=== PATIENT | female | born 1995 | race Two or more races ===

== ENCOUNTER 2018-01-02 12:16 | Emergency (ER) | payer BC ==
[2018-01-02 12:28] VITALS: BP 127/74; PULSE 97; TEMP 99.2; BMI 27.8
--- NOTE | 2018-01-02 12:51 | PDOC ---
Attending Attestation - Resident Resident Name: John Gamble - HPI HPI: 01/02/18 14:19 Pt presents to the ED complaining of R sided flank and abdominal pain, dysuria and fever. Denies vomiting or changes in bowel habits. 01/02/18 14:38 - Physicial Exam PE: 01/02/18 14:41 Agree with resident exam. Patient is alert and oriented and in no acute distress. Abdomen has mild tenderness without guarding or rebound in the RLQ. + R sided CVA tenderness. - Medical Decision Making 01/02/18 14:47 Pt presents to the ED complaining of RLQ and R flank pain and tenderness. Differential includes pyelonephritis, less likely appendicitis, less likely ectopic , PID. will check CT abdomen pelvis to rule out appendicitis, give pain control and reassess. 01/02/18 15:56 Discharge Disposition - Diagnosis Pyelonephritis - Discharge Dispostion Disposition: HOME Condition at time of disposition: Good Decision to Admit order: No - Prescriptions Prescriptions: Levofloxacin [Levaquin] 500 mg PO DAILY #10 tablet - Referrals - Patient Instructions Printed Discharge Instructions: DI for Kidney Infection Additional Instructions: return to the ED for severe pain, severe nausea and vomiting, pain and fever that persist after two days of antibiotic. It is very important that you take the antibiotics. If you do not, you may become very sick. Make sure that you continue taking the antibiotic until it is all gone. Make sure that you follow up with your primary care doctor within two days. - Post Discharge Activity
[2018-01-02] MEDS ORDERED: ACETAMINOPHEN 1000 MG/100 ML VIAL (NON FORMULARY) IVPB ONE (13:23)
[2018-01-02 13:25] LABS: BASO % 0.4 % (0-2.0); HEMATOCRIT 42.6 % (32.4-45.2); HEMOGLOBIN 14.1 GM/dL (10.7-15.3); LYMPH % 9.7 % (8-40); MCH 27.3 pg (25.7-33.7); MCHC 33.1 g/dl (32.0-36.0); MEAN CELL VOLUME 82.5 fl (80-96); MONO % 11.7 % (3.8-10.2); NEUT % 78.2 % (42.8-82.8); PLATELET COUNT 192 K/MM3 (134-434); RBC 5.17 M/mm3 (3.60-5.2); RDW 14.5 % (11.6-15.6); WHITE BLOOD COUNT 11.2 K/mm3 (4.0-10.0)
[2018-01-02] MEDS ORDERED: ACETAMINOPHEN INJECTION 100 ML IVPB ONE (13:29)
[2018-01-02 13:47] LABS: URINE APPEARANCE CLEAR; URINE BILIRUBIN NEGATIVE (<2.0 mg/dL); URINE COLOR YELLOW; URINE GLUCOSE (UA) NEGATIVE (NEGATIVE); URINE KETONE NEGATIVE (NEGATIVE); URINE NITRITE NEGATIVE (NEGATIVE); URINE PROTEIN NEGATIVE (NEGATIVE); URINE UROBILINOGEN NEGATIVE mg/dL (0.2-1.0)
[2018-01-02 13:50] LABS: URINE LEUK ESTERASE 1+ (NEGATIVE)
[2018-01-02 13:54] LABS: ALBUMIN 3.8 g/dl (3.4-5.0); ANION GAP 8 MMOL/L (8-16); BILIRUBIN,TOTAL 0.8 mg/dL (0.2-1.0); BLOOD UREA NITROGEN 5 mg/dL (7-18); CALCIUM 8.4 mg/dL (8.5-10.1); CHLORIDE 105 mmol/L (98-107); CO2 24 mmol/L (21-32); CREATININE 0.9 mg/dL (0.55-1.02); GLUCOSE,RANDOM 108 mg/dL (74-106); POTASSIUM 3.7 mmol/L (3.5-5.1); SGOT/AST 20 U/L (15-37); SGPT/ALT 26 U/L (12-78); SODIUM 137 mmol/L (136-145); TOT PROT 7.3 g/dl (6.4-8.2)
[2018-01-02 13:55] LABS: ALK PHOS 70 U/L (45-117)
[2018-01-02 13:59] LABS: EPI CELLS RARE /HPF (FEW); URINE BACTERIA MANY /hpf (NONE SEEN); URINE MUCUS FEW
[2018-01-02 14:02] LABS: HCG,QUALITATIVE URINE Negative
--- NOTE | 2018-01-02 22:26 | PDOC ---
History of Present Illness - General Chief Complaint: Pain Stated Complaint: POSSIBLE UTI Time Seen by Provider: 01/02/18 12:48 History Source: Patient Exam Limitations: No Limitations - History of Present Illness Initial Comments: 01/02/18 22:25 Ms. Garcia is a 22 yo F with no pertinent past medical history presents to the emergency department with RLQ pain with concurrent right flank pain. She states this pain began 5 days ago while in the [place] (gone for 14 days arrived back in the country yesterday). She states that the RLQ pain is sharp, 10/10 with radiation to the periumbilical area that comes and goes lasting "for hours". In addition, she has concurrent right flank pain that is non radiating and is sharp 10/10. She states she took metronidazole 5 days ago for 6 doses because she believed she had a UTI and used a previous prescription from a family member. Endorses the following: dysuria, fever, chills, and constipation. denies the following: headaches, dizziness, chest pain, SOB, previous appendectomy, hx of nephrolithiasis, hx of gallstones, N/V, melena, diarrhea, and leg pain/swelling. Pmhx: None Shx: none Meds: None Allergies: NKDA Social: Denies tobacco and alcohol use. Endorses smoking marijuana daily. 01/02/18 22:53 Past History - Past Medical History Allergies/Adverse Reactions: Allergies Allergy/AdvReac Type Severity Reaction Status Date / Time No Known Allergies Allergy Verified 01/02/18 12:28 Home Medications: Ambulatory Orders Levofloxacin [Levaquin] 500 mg PO DAILY #10 tablet 01/02/18 COPD: No - Suicide/Smoking/Psychosocial Hx Smoking History: Never smoked Review of Systems - Review of Systems Able to Perform ROS?: Yes Constitutional: Yes: Chills, Fever. No: Diaphoresis HEENTM: No: Eye Pain, Recent change in vision, Nose Pain, Throat Pain, Mouth Pain Respiratory: No: Cough, Shortness of Breath Cardiac (ROS): No: Chest Pain, Palpitations, Syncope, Chest Tightness ABD/GI: Yes: Constipated. No: Diarrhea, Nausea, Poor Appetite, Poor Fluid Intake, Rectal Bleeding, Vomiting, Abdominal cramping, Tarry Stools : Yes: Dysuria, Flank Pain (right). No: Burning, Hematuria Musculoskeletal: No: Back Pain Integumentary: No: Rash Neurological: No: Headache, Numbness, Tingling, Tremors, Weakness Psychiatric: No: Stressors Endocrine: No: Unexplained Weight Gain Hematologic/Lymphatic: No: Anemia *Physical Exam - Vital Signs Last Vital Signs Temp Pulse Resp BP Pulse Ox 99.2 F 97 H 18 127/74 99 01/02/18 12:26 01/02/18 12:26 01/02/18 12:26 01/02/18 12:01/02/18 12:26 - Physical Exam General Appearance: Yes: Nourished, Appropriately Dressed HEENT: positive: EOMI, CARLOS, Normal ENT Inspection Neck: positive: Trachea midline. negative: Lymphadenopathy (R), Lymphadenopathy (L) Respiratory/Chest: positive: Lungs Clear, Normal Breath Sounds Cardiovascular: positive: Regular Rhythm, Regular Rate, S1, S2. negative: Systolic Murmur Vascular Pulses: Dorsalis-Pedis (R): 3+, Doralis-Pedis (L): 3+ Gastrointestinal/Abdominal: positive: Normal Bowel Sounds, Tender (RLQ tenderness to palpation. positive rebound tenderness. ), Rebound Lymphatic: negative: Adenopathy Musculoskeletal: positive: Normal Inspection, CVA Tenderness (R). 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, Fully Oriented, Alert, Normal Mood/ Affect, Normal Response, Motor Strength 5/5 ED Treatment Course - LABORATORY CBC & Chemistry Diagram: 01/02/18 13:10 01/02/18 13:10 - ADDITIONAL ORDERS Additional order review: Laboratory Results 01/02/18 01/02/18 13:10 13:10 Sodium 137 Potassium 3.7 Chloride 105 Carbon Dioxide 24 Anion Gap 8 BUN 5 L Creatinine 0.9 Creat Clearance w eGFR > 60 Random Glucose 108 H Calcium 8.4 L Total Bilirubin 0.8 AST 20 ALT 26 Alkaline Phosphatase 70 Total Protein 7.3 Albumin 3.8 Urine Color Yellow Urine Appearance Clear Urine pH 6.0 Ur Specific [place] 1.017 Urine Protein Negative Urine Glucose (UA) Negative Urine Ketones Negative Urine Blood 1+ H Urine Nitrite Negative Urine Bilirubin Negative Urine Urobilinogen Negative Ur Leukocyte Esterase 1+ H Urine WBC (Auto) 31 Urine RBC (Auto) 5 Ur Epithelial Cells Rare Urine Bacteria Many Urine Mucus Few Urine HCG, Qual Negative 01/02/18 13:10 RBC 5.17 MCV 82.5 MCHC 33.1 RDW 14.5 MPV 9.0 Neutrophils % 78.2 Lymphocytes % 9.7 Monocytes % 11.7 H Eosinophils % 0.0 Basophils % 0.4 - RADIOLOGY Radiology Studies Ordered: Category Date Time Status ABDOMEN & PELVIS CT WITH CONTR [CT] Stat CT Scan 01/02/18 14:40 Completed - Medications Given in the ED: ED Medications Discontinued Medications Generic Name Dose Route Start Last Admin Trade Name Freq PRN Reason Stop Dose Admin Acetaminophen 1,000 mg 01/02/18 13:23 01/02/18 13:32 Ofirmev Injection - IVPB 01/02/18 13:24 1,000 mg ONCE ONE Administration Levofloxacin 500 mg 01/02/18 16:07 01/02/18 16:36 Levaquin - PO 01/02/18 16:08 500 mg ONCE ONE Administration Medical Decision Making - Medical Decision Making 01/02/18 23:00 22 yo F presenting with RLQ and R flank pain ongoing for the past 5 days in setting of dysuria. Ddx: nephrolithiasis, pyelo, UTI, appendicitis, ectopic, ovarian torsion, TOA, muscuoloskeletal pain. Initial vitals: Initial Vital Signs Temp Pulse Resp BP Pulse Ox 99.2 F 97 H 18 127/74 99 01/02/18 12:26 01/02/18 12:26 01/02/18 12:26 01/02/18 12:26 01/02/18 12:26 Work up: Laboratory Tests 01/02/18 01/02/18 01/02/18 13:10 13:10 13:10 WBC 11.2 H RBC 5.17 Hgb 14.1 Hct 42.6 MCV 82.5 MCH 27.3 MCHC 33.1 RDW 14.5 Plt Count 192 MPV 9.0 Absolute Neuts (auto) 8.8 H Neutrophils % 78.2 Lymphocytes % 9.7 Monocytes % 11.7 H Eosinophils % 0.0 Basophils % 0.4 Nucleated RBC % 0 Sodium 137 Potassium 3.7 Chloride 105 Carbon Dioxide 24 Anion Gap 8 BUN 5 L Creatinine 0.9 Creat Clearance w eGFR > 60 Random Glucose 108 H Calcium 8.4 L Total Bilirubin 0.8 AST 20 ALT 26 Alkaline Phosphatase 70 Total Protein 7.3 Albumin 3.8 Urine Color Yellow Urine Appearance Clear Urine pH 6.0 Ur Specific [place] 1.017 Urine Protein Negative Urine Glucose (UA) Negative Urine Ketones Negative Urine Blood 1+ H Urine Nitrite Negative Urine Bilirubin Negative Urine Urobilinogen Negative Ur Leukocyte Esterase 1+ H Urine WBC (Auto) 31 Urine RBC (Auto) 5 Ur Epithelial Cells Rare Urine Bacteria Many Urine Mucus Few Urine HCG, Qual Negative UA showed many bacteria. Elevated WBC. No definite CT evidence of acute appendicitis or other acute pathology as stated by radiology. Likely the pain is caused by a UTI or pyelo, especially in the setting of a inadequate treatment. Dispo: DC to home 01/02/18 23:04 *DC/Admit/Observation/Transfer Diagnosis at time of Disposition: Pyelonephritis - Discharge Dispostion Disposition: HOME Condition at time of disposition: Good - Prescriptions Prescriptions: Levofloxacin [Levaquin] 500 mg PO DAILY #10 tablet - Referrals - Patient Instructions Printed Discharge Instructions: DI for Kidney Infection Additional Instructions: return to the ED for severe pain, severe nausea and vomiting, pain and fever that persist after two days of antibiotic. It is very important that you take the antibiotics. If you do not, you may become very sick. Make sure that you continue taking the antibiotic until it is all gone. Make sure that you follow up with your primary care doctor within two days. - Post Discharge Activity
--- NOTE | 2018-01-03 12:45 | PDOC ---
Patient Follow-up (Call Back) - Post ED Follow - Up Condition at time of discharge: Good Disposition at time of original discharge: HOME Reason for Call Back: Complaint/Condition F/U (Pt states her medication was not sent to her pharmacy. Note per MD states pt to be placed on Levoquin 500mg daily for 10 days. Ordered medication for patient and sent to pharmacy.)
== END 2018-01-02 16:36 | disposition home or self-care (01) ==
LOC: JER 12:16
PROC: 3E033NZ Introduction of Analgesics, Hypnotics, Sedatives into Peripheral Vein, Percutaneous Approach (ICD-10-PCS; principal; 2018-01-02)
DX: N12 Tubulo-interstitial nephritis, not specified as acute or chronic (principal)
CPT/HCPCS: 36415; 74177-TC; 80053; 81003; 81015; 84703; 85025; 87070; 87086; 87186; 87205; 87491; 87591; 87661; 99282-25; J0131